=== PATIENT | male | born 2000 | race Caucasian/White ===

== ENCOUNTER 2021-02-13 10:24 | Emergency (ER) | payer OTHER ==
[2021-02-13 10:43] VITALS: BP 127/58
[2021-02-13] MEDS ORDERED: DEXAMETHASONE 10 MG/ML VIAL PO STA (11:34)
[2021-02-13] MEDS ORDERED: CHERRY SYRUP 10 ML UDC PO ONE (11:34)
--- NOTE | 2021-02-13 11:36 | ED Physician Documentation ---
History of Present Illness - Stated complaint Stated Complaint: THROAT PX - Chief complaint Chief Complaint: Heent - Additonal information Additional information: 21-year-old male presents emergency department for evaluation of 4 days sore t hroat. Pain worse on the right. Reports difficulty swallowing but no dysphonia. He is able to tolerate his oral secretions. He has had no fever. No tonsillar exudate. Reports the this is the third time in 2020 in which she has had a sore throat. He is requesting a tonsillectomy today. Fully vaccinated for COVID-19. Denies any sick contacts or similar at home. No recent travel. Denies any pertinent past medical history. Takes no prescribed medications. Has taken Tylenol and ibuprofen with minimal relief of pain. Review of Systems Constitutional: denies: Fever, Chills Eyes: reports: Reviewed and negative Ears: reports: Reviewed and negative Nose: denies: Rhinorrhea / runny nose, Congestion Throat: reports: Sore throat, Swollen tonsils. denies: Dental pain / toothache, Oral lesions / sores Cardiac: reports: Reviewed and negative Respiratory: reports: Reviewed and negative GI: reports: Reviewed and negative : reports: Reviewed and negative PD PAST MEDICAL HISTORY - Past Medical History Past Medical History: No Cardiovascular: None Respiratory: None Neuro: None Endocrine/Autoimmune: None GI: None : None HEENT: None Psych: None Musculoskeletal: None Derm: None - Past Surgical History Past Surgical History: No - Allergies Allergies/Adverse Reactions: Allergies Allergy/AdvReac Type Severity Reaction Status Date / Time No Known Drug Allergies Allergy Verified 02/13/21 10:43 - Social History Does the pt smoke?: No Smoking Status: Never smoker Does the pt drink ETOH?: No Does the pt have substance abuse?: No - Immunizations Immunizations are current?: Yes - POLST Patient has POLST: No PD ED PE EXPANDED - General General: Alert, No acute distress, Well developed/nourished - HEENT HEENT: Moist mucous membranes, Pharyngeal erythema (Generalized posterior oropharynx erythema. 2+ tonsillar is without exudate. Uvula is midline. Normal swallow. Normal phonation. No soft palate asymmetry or swelling. Full range of motion of neck in all planes), Swollen tonsils. No: Tonsillar exudate - Neck Neck: Supple w/out meningeal sx. No: Adenopathy - Cardiac Cardiac: Regular Rate, Radial strong equal, Pedal strong equal, Cap refill < 2 sec - Respiratory Respiratory: Clear to ausultation joo. No: Distress, Labored - Derm Derm: Normal color, Warm and dry. No: Rash Results - Vitals Vitals: Vital Signs - 24 hr 02/13/21 10:34 Temperature 36.7 C Heart Rate 68 Respiratory 15 Rate Blood Pressure 127/58 L O2 Saturation 100 Oxygen O2 Source Room air - Labs Labs: Laboratory Tests 02/13/21 11:55 Group A Strep Rapid Negative PD MEDICAL DECISION MAKING - ED course Complexity details: reviewed results, d/w patient ED course: 21-year-old male presents emergency department for 4 days of a sore throat. Reports most the pain on the right side. He does have bilateral tonsillar swelling without exudate. No secondary findings suggest RPA or ACCESS SERVICE REPRESENTATIVE. Patient was requesting a tonsillectomy today. We discussed that most causes of the sore throat are viral. His rapid strep is negative. Will send for culture and defer antibiotics unless positive. Patient given Decadron today in the ER. Discussed with patient that given his concern for recurrent sore throats ENT evaluation may be warranted but that should be completed through his PCP/[facility]. Departure - Departure Disposition: 01 Home, Self Care Clinical Impression: Pharyngitis Qualifiers: Pharyngitis/tonsillitis etiology: other specified organisms Qualified Code(s): J02.8 - Acute pharyngitis due to other specified organisms Condition: Stable Record reviewed to determine appropriate education?: Yes Instructions: ED Pharyngitis Strep Poss Ch Comments: Pee your rapid test for strep was negative. We are sending the culture to the lab. We will let you know if it is positive. Most sore throats are due to a virus. I have given you a dose of Decadron which should help with pain and inflammation over the next few days. You can continue Tylenol and ibuprofen at home gargle with warm salt water 3 times a day. Please discuss your concerns about recurrent sore throat with [facility]. You may benefit from referral to an ear nose throat doctor. Return to the ED for fevers, facial swelling, or if you begin to drool or have severe neck pain
[2021-02-13 12:23] LABS: RAPID STREP SCREEN Negative (Negative)
--- NOTE | 2021-02-15 12:35 | ED Physician Documentation ---
ED Addendum - Addendum Addendum: 02/15/21 12:34 Throat culture is positive for beta-hemolytic strep group A. We will send antibiotics to the [facility] for the patient. Patient contacted. Departure - Departure Disposition: 01 Home, Self Care Clinical Impression: Pharyngitis Qualifiers: Pharyngitis/tonsillitis etiology: other specified organisms Qualified Code(s): J02.8 - Acute pharyngitis due to other specified organisms Condition: Stable Instructions: ED Pharyngitis Strep Poss Ch Prescriptions: Penicillin V Potassium 500 mg PO Q6HR #40 tablet Comments: Pee your rapid test for strep was negative. We are sending the culture to the lab. We will let you know if it is positive. Most sore throats are due to a virus. I have given you a dose of Decadron which should help with pain and inflammation over the next few days. You can continue Tylenol and ibuprofen at home gargle with warm salt water 3 times a day. Please discuss your concerns about recurrent sore throat with [facility]. You may benefit from referral to an ear nose throat doctor. Return to the ED for fevers, facial swelling, or if you begin to drool or have severe neck pain Discharge Date/Time: 02/13/21 12:36
== END 2021-02-13 12:36 | disposition home or self-care (01) ==
LOC: ED 10:24
DX: J02.0 Streptococcal pharyngitis (principal)
CPT/HCPCS: 87070; 87077; 87430; 99283; 99284; A9270

== ENCOUNTER 2021-05-30 08:00 | Outpatient (CLI) | payer OTHER | END 2021-05-30 23:59 | LOC: LAB.N 08:00 | PROVIDERS: ATTEND Emergency Medicine | DX: R05.9 Cough, unspecified (principal); R09.81 Nasal congestion; Z20.822 Contact with and (suspected) exposure to COVID-19 ==